=== PATIENT | male | born 1960 | race Caucasian/White ===

== ENCOUNTER 2016-09-07 13:19 | Observation (INO) | payer BC ==
[~2016-09-07] VITALS: Ht 172.7 cm; Wt 93.3 kg
[~2016-09-07 13:19] MED LIST: FLUO20CA4 PO; MELO-1 PO; NAPR500T PO; OMEP40CA2 PO; ONDA4TAB7 SL
[2016-09-07 13:24] VITALS: BP 134/65; PULSE 80; RESP 16; TEMP 97.8; O2SAT 97
--- NOTE | 2016-09-07 14:02 | PD ---
HPI Chief Complaint: Pain: Acute or Chronic Time Seen by Provider: 13:59 Travel History International Travel<30 days: No Contact w/Intl Traveler<30days: No Traveled to known affect area: No History of Present Illness HPI Patient is a 56-year-old male who presents emergency for evaluation of right foot and leg pain. Patient states the pain started 2 days ago. He reports being on his feet at work more than usual. He states his foot feels as if it throbbing and aching. He reports a lump on the side of his sorto. He does have a history of blood clots several years ago and was on Coumadin for approximately 6 months afterward. He states the blood clot at that time was from being on his feet to often and poor circulation per his primary doctor. He denies any shortness of breath, fever, chills, abdominal pain, back pain. PFSH Past Medical History Hx Anticoagulant Therapy: No Bipolar Disorder: Yes Anxiety: Yes Depression: Yes Cardiovascular Problems: Yes (CHOL) Diabetes: No Diminished Hearing: No Deep Vein Thrombosis: Yes GERD: Yes Past Surgical History Other Surgery: Yes (HERNIS REPAIR - 1985) Social History Alcohol Use: Yes (STATES NO ALCOHOL X 1 MONTH) Tobacco Use: No Substance Use: No (DENIES ANY USE) Allergies-Medications (Allergen,Severity, Reaction): Coded Allergies: No Known Allergies (Verified , 09/07/16) Reported Meds & Prescriptions Reported Meds & Active Scripts Active Ondansetron Odt 4 Mg Tab 4 Mg SL Q6HR PRN Meloxicam 15 Mg Tab 15 Mg PO DAILY Naproxen 500 Mg Tab 500 Mg PO BID 7 Days Fluoxetine (Fluoxetine HCl) 20 Mg Cap 20 Mg PO DAILY Omeprazole 40 Mg Cap 40 Mg PO DAILY Review of Systems Except as stated in HPI: all other systems reviewed are Neg Musculoskeletal: Positive: Myalgias, Edema, Pain Skin: Positive Change in Pigmentation Physical Exam Narrative GENERAL: Well-nourished, well-developed patient. SKIN: Warm and dry. HEAD: Normocephalic. EYES: No scleral icterus. No injection or drainage. NECK: Supple, trachea midline. No JVD or lymphadenopathy. CARDIOVASCULAR: Regular rate and rhythm without murmurs, gallops, or rubs. RESPIRATORY: Breath sounds equal bilaterally. No accessory muscle use. GASTROINTESTINAL: Abdomen soft, non-tender, nondistended. MUSCULOSKELETAL: No cyanosis, mild edema and erythema noted to the right foot.. There is a lump on the right tibia medially just distal to the knee. Positive pedal pulses, brisk less than 3 second capillary refill. Negative Homans sign. BACK: Nontender without obvious deformity. No CVA tenderness. Data Data Last Documented VS Vital Signs Date Time Temp Pulse Resp B/P Pulse Ox O2 Delivery O2 Flow Rate FiO2 09/07/16 13:24 97.8 80 16 134/65 97 Orders Us Leg Venous Doppler (09/07/16 ) Tibia/Fibula (Ap/Lat) (09/07/16 ) Complete Blood Count With Diff (09/07/16 15:03) Basic Metabolic Panel (Bmp) (09/07/16 15:03) Act Partial Throm Time (Ptt) (09/07/16 15:03) Prothrombin Time / Inr (Pt) (09/07/16 15:03) Rivaroxaban (Xarelto) (09/07/16 16:15) Iv Access Insert/Monitor (09/07/16 16:14) Heparin Inj (Heparin Inj) (09/07/16 16:15) Heparin Inj (Heparin Inj) (09/07/16 22:15) Heparin Inj (Heparin Inj) (09/07/16 22:15) Heparin-D5w Inj (Heparin-D5w Inj) (09/07/16 16:15) Place In Observation (09/07/16 ) Vital Signs (Adult) Q4H (09/07/16 16:38) ^ Elevate (09/07/16 16:38) Diet Heart Healthy (09/07/16 Dinner) Sodium Chloride 0.9% Flush (Ns Flush) (09/07/16 16:45) Sodium Chloride 0.9% Flush (Ns Flush) (09/07/16 21:00) Enoxaparin Inj (Lovenox Inj) (09/07/16 18:00) Warfarin (Coumadin) (09/07/16 17:00) Acetamin-Hydrocod 325-5 Mg (Moyers 5-325 (09/07/16 16:45) Acetamin-Hydrocod 325-5 Mg (Moyers 5-325 (09/07/16 16:45) Complete Blood Count With Diff (09/08/16 06:00) Basic Metabolic Panel (Bmp) (09/08/16 06:00) Prothrombin Time / Inr (Pt) (09/08/16 06:00) Prothrombin Time / Inr (Pt) (09/09/16 06:00) Prothrombin Time / Inr (Pt) (09/10/16 06:00) Prothrombin Time / Inr (Pt) (09/11/16 06:00) Prothrombin Time / Inr (Pt) (09/12/16 06:00) Fluoxetine (Prozac) (09/08/16 09:00) Pantoprazole (Protonix) (09/08/16 09:00) Case Management Consult (09/07/16 ) Admit Order (Ed Use Only) (09/07/16 16:44) Labs Laboratory Tests Test 09/07/16 15:30 White Blood Count 8.1 TH/MM3 Red Blood Count 4.33 MIL/MM3 Hemoglobin 13.7 GM/DL Hematocrit 39.7 % Mean Corpuscular Volume 91.7 FL Mean Corpuscular Hemoglobin 31.8 PG Mean Corpuscular Hemoglobin 34.6 % Concent Red Cell Distribution Width 12.1 % Platelet Count 232 TH/MM3 Mean Platelet Volume 7.3 FL Neutrophils (%) (Auto) 71.4 % Lymphocytes (%) (Auto) 19.7 % Monocytes (%) (Auto) 6.2 % Eosinophils (%) (Auto) 1.5 % Basophils (%) (Auto) 1.2 % Neutrophils # (Auto) 5.8 TH/MM3 Lymphocytes # (Auto) 1.6 TH/MM3 Monocytes # (Auto) 0.5 TH/MM3 Eosinophils # (Auto) 0.1 TH/MM3 Basophils # (Auto) 0.1 TH/MM3 CBC Comment DIFF FINAL Differential Comment Prothrombin Time 10.7 SEC Prothromb Time International 1.0 RATIO Ratio Activated Partial 25.0 SEC Thromboplast Time Sodium Level 141 MEQ/L Potassium Level 4.2 MEQ/L Chloride Level 105 MEQ/L Carbon Dioxide Level 27.9 MEQ/L Anion Gap 8 MEQ/L Blood Urea Nitrogen 11 MG/DL Creatinine 0.71 MG/DL Estimat Glomerular Filtration 115 ML/MIN Rate Random Glucose 93 MG/DL Calcium Level 8.3 MG/DL MDM Medical Decision Making Medical Screen Exam Complete: Yes Emergency Medical Condition: Yes Interpretation(s) Laboratory Tests Test 09/07/16 15:30 White Blood Count 8.1 TH/MM3 Red Blood Count 4.33 MIL/MM3 Hemoglobin 13.7 GM/DL Hematocrit 39.7 % Mean Corpuscular Volume 91.7 FL Mean Corpuscular Hemoglobin 31.8 PG Mean Corpuscular Hemoglobin 34.6 % Concent Red Cell Distribution Width 12.1 % Platelet Count 232 TH/MM3 Mean Platelet Volume 7.3 FL Neutrophils (%) (Auto) 71.4 % Lymphocytes (%) (Auto) 19.7 % Monocytes (%) (Auto) 6.2 % Eosinophils (%) (Auto) 1.5 % Basophils (%) (Auto) 1.2 % Neutrophils # (Auto) 5.8 TH/MM3 Lymphocytes # (Auto) 1.6 TH/MM3 Monocytes # (Auto) 0.5 TH/MM3 Eosinophils # (Auto) 0.1 TH/MM3 Basophils # (Auto) 0.1 TH/MM3 CBC Comment DIFF FINAL Differential Comment Prothrombin Time 10.7 SEC Prothromb Time International 1.0 RATIO Ratio Activated Partial 25.0 SEC Thromboplast Time Sodium Level 141 MEQ/L Potassium Level 4.2 MEQ/L Chloride Level 105 MEQ/L Carbon Dioxide Level 27.9 MEQ/L Anion Gap 8 MEQ/L Blood Urea Nitrogen 11 MG/DL Creatinine 0.71 MG/DL Estimat Glomerular Filtration 115 ML/MIN Rate Random Glucose 93 MG/DL Calcium Level 8.3 MG/DL Last Impressions Tibia/Fibula X-Ray 09/07/16 0000 Signed Impressions: Service Date/Time: Wednesday, September 07, 2016 14:11 - CONCLUSION: Soft tissue swelling. No acute fracture. Mane Arita MD Lower Extremity Ultrasound 09/07/16 0000 Signed Impressions: Service Date/Time: Wednesday, September 07, 2016 14:22 - CONCLUSION: Occlusive thrombus of the greater saphenous vein. No deep venous thrombosis. Mane Arita MD Vital Signs Date Time Temp Pulse Resp B/P Pulse Ox O2 Delivery O2 Flow Rate FiO2 09/07/16 13:24 97.8 80 16 134/65 97 Differential Diagnosis DVT versus dependent edema versus cellulitis versus gout versus other Narrative Course Patient is a 56-year-old male who presented to emergency department for evaluation of right lower leg pain, swelling and redness. Symptoms started 2 days ago. Patient reported a history of DVT. X-ray of the tibia-fibula was negative for acute fracture, it did show soft tissue swelling. On exam there was noted to be swelling to the lateral aspect of the tibia just distal to the knee. Ultrasound was ordered to rule out DVT due to patient's history and physical presentation. Ultrasound shows an occlusive thrombus in the greater saphenous vein. Discussed findings with patient. Discussed option of Eliquis versus Coumadin. He was educated on both medications as well as risks versus benefits. Patient opted to go on Eliquis. Labs ordered to assess kidney function prior to initiation of this medication. We do not have Eliquis savings cards in the emergency department. Discussed XARELTO with patient. He then stated that he lost his insurance when he quit his last job. He also stated that his sister has factor V deficiency. Additionally patient stated that he called the pharmacy while he was in the emergency department and was told that Xarelto would be over $200. At that time patient stated that he would like to start back on Coumadin instead. Patient will be admitted under observation to start on anticoagulation. Steve Vogt accepted admission on behalf of Dr. Ashford. Diagnosis Primary Impression: Occlusive thrombus Additional Impressions: History of DVT (deep vein thrombosis) Family history of factor V Leiden mutation Admitting Information Admitting Physician Requests: Observation Condition: Stable Che Barber Sep 07, 2016 14:02
--- NOTE | 2016-09-07 14:28 | RADHPO ---
EXAM DATE/TIME: 09/07/2016 14:11 [facility] COMPARISON: No previous studies available for comparison. INDICATIONS : Pain and swelling right lower leg, no known injury MEDICAL HISTORY : blood clots SURGICAL HISTORY : None. ENCOUNTER: Initial ACUITY: 2 days PAIN SCORE: 10/10 LOCATION: Right lower leg FINDINGS: Two view examination of the right tibia demonstrates no evidence of fracture or dislocation. Bony mi neralization is normal. The soft tissue structures are intact. Soft tissue swelling. CONCLUSION: Soft tissue swelling. No acute fracture. Mane Arita MD on September 07, 2016 at 14:26 Board Certified Radiologist. This report was verified electronically.
--- NOTE | 2016-09-07 14:49 | RADHPO ---
EXAM DATE/TIME: 09/07/2016 14:22 [facility] COMPARISON: No previous studies available for comparison. INDICATIONS : Right leg pain. MEDICAL HISTORY : Gastroesophageal reflux disease. Hypercholesterolemia. Deep venous thrombosis. Bipolar disorder. SURGICAL HISTORY : Hernia repair. ENCOUNTER: Initial ACUITY: 2 day PAIN SCORE: 8/10 LOCATION: Right leg. TECHNIQUE: Venous ultrasound of the leg was performed from the inguinal ligament to the proximal calf. Real-nelson e, color Doppler and spectral tracing, compression and augmentation techniques were used. FINDINGS: There is normal compressibility of the deep venous system from the inguinal region to the proximal ca lf. No echogenic clot is seen in the lumen of the common femoral, femoral, popliteal, and posterior tibial veins. There is a normal response of the venous system to proximal and distal augmentation an d respiration. There is thrombosis of the greater saphenous vein. CONCLUSION: Occlusive thrombus of the greater saphenous vein. No deep venous thrombosis. Mane Arita MD on September 07, 2016 at 14:46 Board Certified Radiologist. This report was verified electronically.
[2016-09-07 15:37] LABS: AUTOMATED NEUTROPHIL # 5.8 TH/MM3 (1.8-7.7); BASOPHIL # 0.1 TH/MM3 (0-0.2); BASOPHIL % 1.2 % (0.0-2.0); EOSINOPHIL # 0.1 TH/MM3 (0-0.4); EOSINOPHIL % 1.5 % (0.0-4.0); HEMATOCRIT 39.7 % (39.0-51.0); HEMO FLAGS DIFF FINAL; LYMPH % 19.7 % (9.0-44.0); LYMPHOCYTE # 1.6 TH/MM3 (1.0-4.8); MEAN CELL VOLUME 91.7 FL (80.0-100.0); MEAN CORPUSCULAR HEMOGLOBIN 31.8 PG (27.0-34.0); MEAN CORPUSCULAR HGB CONC 34.6 % (32.0-36.0); MONO % 6.2 % (0.0-8.0); NEUT % 71.4 % (16.0-70.0); PLATELET COUNT 232 TH/MM3 (150-450); RED BLOOD COUNT 4.33 MIL/MM3 (4.50-5.90); RED CELL DISTRIBUTION WIDTH 12.1 % (11.6-17.2); WHITE BLOOD COUNT 8.1 TH/MM3 (4.0-11.0)
[2016-09-07 15:47] LABS: POTASSIUM 4.2 MEQ/L (3.5-5.1)
[2016-09-07 15:50] LABS: BICARBONATE 27.9 MEQ/L (21.0-32.0)
[2016-09-07 15:52] LABS: PROTHROMBIN TIME - PATIENT 10.7 SEC (9.8-11.6)
[2016-09-07] MEDS ORDERED: APIXABAN 5 MG TABLET PO ONE (16:00)
[2016-09-07] MEDS ORDERED: HEPARIN SODIUM - IV 10,000 UNITS/10 ML VIAL IV ONE (16:15)
[2016-09-07] MEDS ORDERED: RIVAROXABAN 15 MG TAB PO ONE (16:15)
[2016-09-07] MEDS ORDERED: HEPARIN-D5W INJ 250 ML IV SCH (16:15)
[2016-09-07] MEDS ORDERED: ACETAMINOPHEN/HYDROcodone 325 MG/5 MG TAB PO PRN (16:45)
[2016-09-07] MEDS ORDERED: SODIUM CHLORIDE 0.9% FLUSH 5 ML FLUSH IVF PRN (16:45)
[2016-09-07] MEDS ORDERED: WARFARIN SOD 5 MG TAB PO SCH (17:00)
[2016-09-07 17:13] VITALS: BP 147/89; PULSE 71; RESP 16; O2SAT 98
[2016-09-07] MEDS: ENOXAPARIN SODIUM 100 MG/ML SYRINGE SQ SCH (17:25)
[2016-09-07 17:50] VITALS: BP 133/87; PULSE 68; RESP 20; TEMP 97.2; O2SAT 99
[2016-09-07 19:54] VITALS: PULSE 80
[2016-09-07 20:28] VITALS: BP 135/83; PULSE 74; RESP 20; TEMP 98; O2SAT 97
[2016-09-07] MEDS: SODIUM CHLORIDE 0.9% FLUSH 5 ML FLUSH IVF SCH (21:33)
[2016-09-07] MEDS: ACETAMINOPHEN/HYDROcodone 325 MG/5 MG TAB PO PRN (21:34)
[2016-09-07] MEDS ORDERED: HEPARIN SODIUM - IV 10,000 UNITS/10 ML VIAL IV PRN ×2 (22:15)
[2016-09-08 00:28] VITALS: BP 137/75; PULSE 66; RESP 16; TEMP 97; O2SAT 93
[2016-09-08] MEDS: ACETAMINOPHEN/HYDROcodone 325 MG/5 MG TAB PO PRN ×2 (01:48→06:13)
[2016-09-08 04:29] VITALS: BP 142/89; PULSE 62; RESP 14; TEMP 96.9; O2SAT 93
[2016-09-08] MEDS: ENOXAPARIN SODIUM 100 MG/ML SYRINGE SQ SCH (06:12)
[2016-09-08 06:24] LABS: AUTOMATED NEUTROPHIL # 3.3 TH/MM3 (1.8-7.7); BASOPHIL # 0.1 TH/MM3 (0-0.2); BASOPHIL % 0.9 % (0.0-2.0); EOSINOPHIL # 0.3 TH/MM3 (0-0.4); EOSINOPHIL % 3.9 % (0.0-4.0); HEMATOCRIT 39.5 % (39.0-51.0); HEMO FLAGS DIFF FINAL; LYMPH % 35.8 % (9.0-44.0); LYMPHOCYTE # 2.4 TH/MM3 (1.0-4.8); MEAN CELL VOLUME 92.6 FL (80.0-100.0); MEAN CORPUSCULAR HEMOGLOBIN 31.5 PG (27.0-34.0); MONO % 7.7 % (0.0-8.0); NEUT % 51.7 % (16.0-70.0); PLATELET COUNT 218 TH/MM3 (150-450); RED BLOOD COUNT 4.26 MIL/MM3 (4.50-5.90); RED CELL DISTRIBUTION WIDTH 11.9 % (11.6-17.2); WHITE BLOOD COUNT 6.6 TH/MM3 (4.0-11.0)
[2016-09-08 06:32] LABS: POTASSIUM 3.9 MEQ/L (3.5-5.1)
[2016-09-08 06:38] LABS: BICARBONATE 32.7 MEQ/L (21.0-32.0)
[2016-09-08 06:45] LABS: PROTHROMBIN TIME - PATIENT 10.9 SEC (9.8-11.6)
[2016-09-08 08:00] VITALS: BP 136/83; PULSE 62; RESP 18; TEMP 97.3; O2SAT 97
[2016-09-08] MEDS ORDERED: ONDANSETRON HCL 4 MG/2 ML VIAL IV PRN (08:15)
[2016-09-08] MEDS ORDERED: DOCUSATE SODIUM 100 MG CAP PO PRN (08:15)
[2016-09-08] MEDS ORDERED: MAGNESIUM HYDROXIDE SUSP 30 ML CUP PO PRN (08:15)
[2016-09-08] MEDS: SODIUM CHLORIDE 0.9% FLUSH 5 ML FLUSH IVF SCH (08:23)
[2016-09-08] MEDS ORDERED: FLUoxetine HCL 20 MG CAP PO SCH (09:00)
[2016-09-08] MEDS ORDERED: PANTOPRAZOLE SOD 40 MG DELAYED RELEASE TAB PO SCH (09:00)
--- NOTE | 2016-09-08 09:35 | HHI.HP ---
[facility] Non-Staff Admission Diagnosis occlusive thrombus Diagnoses: (1) Superficial vein thrombosis Diagnosis: Principal (2) Hypertension Diagnosis: Secondary (3) Hyperlipidemia Diagnosis: Secondary (4) Gastroesophageal reflux Diagnosis: Secondary (5) History of DVT (deep vein thrombosis) Diagnosis: Secondary Chief Complaint: Right leg pain Travel History International Travel<30 Days: No Contact w/Intl Traveler <30 Da: No Traveled to Known Affected Are: No History of Present Illness 56-year-old male with known history of hypertension, hyperlipidemia, gastroesophageal reflux, history of right lower extremity DVT who presented to hospital because of right lower extremity swelling, pain. Patient states that he has changed jobs and is not ambulating as much as he did before. 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 He started developing swelling in his right lower extremity 3 days ago and progressively got worse so he came the hospital for evaluation. Patient had workup done emergency department found to have superficial vein thrombosis of the greater saphenous vein. Because of that reason is recommended by the ER nurse practitioner that the patient be admitted for anticoagulation. He does indicate that his family does have strong history of blood clots and possible factor V deficiency. I notified him to follow-up with his primary medical doctor for outpatient workup to evaluate if he is genetically predisposed to clot formation. Review of Systems Constitutional: DENIES: Diaphoretic episodes, Fatigue, Fever, Weight gain, Weight loss, Chills, Dizziness, Change in appetite, Night Sweats Eyes: DENIES: Blurred vision, Diplopia, Eye inflammation, Eye pain, Vision loss , Photosensitivity, Double Vision Ears, nose, mouth, throat: DENIES: Vertigo, Nasal discharge, Throat pain, Ear Pain, Running Nose, Sinus Pain Respiratory: DENIES: Apneas, Cough, Snoring, Wheezing, Hemoptysis, Sputum production, Shortness of breath Cardiovascular: COMPLAINS OF: Lower Extremity Edema (right), DENIES: Chest pain, Palpitations, Syncope, Dyspnea on Exertion, Orthopnea Gastrointestinal: DENIES: Abdominal pain, Black stools, Bloody stools, Constipation, Diarrhea, Nausea, Vomiting, Difficulty Swallowing, Anorexia Neurologic: DENIES: Abnormal gait, Headache, Localized weakness, Paresthesias, Speech Problems, Tremor, Poor Balance Past Family Social History Past Medical History Hypertension Hyperlipidemia Anxiety/depression Gastroesophageal reflux Bipolar disorder History DVT of the right lower extremity Past Surgical History Abdominal hernia repair Urethral dilatation Reported Medications Reported Meds & Active Scripts Active Ondansetron Odt 4 Mg Tab 4 Mg SL Q6HR PRN Meloxicam 15 Mg Tab 15 Mg PO DAILY Naproxen 500 Mg Tab 500 Mg PO BID 7 Days Fluoxetine (Fluoxetine HCl) 20 Mg Cap 20 Mg PO DAILY Omeprazole 40 Mg Cap 40 Mg PO DAILY Allergies: Coded Allergies: No Known Allergies (Verified , 09/07/16) Family History Reviewed is significant for DVT with mother. Social History Patient states that he did smoke temporarily when he was a teenager. Denies any alcohol or illicit drug use Physical Exam Vital Signs Vital Signs Date Time Temp Pulse Resp B/P Pulse Ox O2 Delivery O2 Flow Rate FiO2 09/08/16 08:00 97.3 62 18 136/83 97 09/08/16 04:29 96.9 62 14 142/89 93 09/08/16 00:28 97.0 66 16 137/75 93 09/07/16 20:28 98.0 74 20 135/83 97 09/07/16 19:54 80 09/07/16 17:50 97.2 68 20 133/87 99 09/07/16 17:13 71 16 147/89 98 Room Air 09/07/16 13:24 97.8 80 16 134/65 97 Physical Exam GENERAL: Well-developed, well-nourished, in no acute distress. alert and orientated HEENT: Head is normocephalic without any lesions or masses noted. Facial features are symmetric. Eyes: Pupils equal round reactive to light. Extraocular muscles are intact. Conjunctivae were clear. Oropharyngeal: Pharynx without any erythema edema. Tongue is midline without deviation. Buccal mucosa is moist without any masses or lesions NECK: Supple without any masses. Trachea midline no deviation. No JVD, no bruits are appreciated CARDIAC: Regular rhythm, regular rate. S1/S2 are heard. No murmurs gallops or rubs. LUNGS: Clear to auscultation bilaterally. No wheeze, rhonchi or rales. No use of accessory muscles on inspiration or expiration. ABDOMEN: Soft, nontender. Nondistended. Bowel sounds heard in all 4 quadrants. No organomegaly or masses. Negative rebound, negative guarding EXTREMITIES: No edema, pulses are equal bilaterally. No cyanosis or clubbing NEUROLOGY: Mood and affect appear appropriate. Cranial nerves II through XII grossly intact. Muscle strength 5/5 in upper and lower extremities bilaterally. Deep tendon reflexes are 2+ in upper and lower extremities bilaterally. RIGHT LOWER EXTREMITY: Patient does have some mild nonpitting edema noted in the right ankle. There is a palpable thrombus noted in the right medial calf. Laboratory Laboratory Tests Test 09/07/16 09/08/16 15:30 06:08 White Blood Count 8.1 6.6 Red Blood Count 4.33 4.26 Hemoglobin 13.7 13.4 Hematocrit 39.7 39.5 Mean Corpuscular Volume 91.7 92.6 Mean Corpuscular Hemoglobin 31.8 31.5 Mean Corpuscular Hemoglobin 34.6 34.0 Concent Red Cell Distribution Width 12.1 11.9 Platelet Count 232 218 Mean Platelet Volume 7.3 7.2 Neutrophils (%) (Auto) 71.4 51.7 Lymphocytes (%) (Auto) 19.7 35.8 Monocytes (%) (Auto) 6.2 7.7 Eosinophils (%) (Auto) 1.5 3.9 Basophils (%) (Auto) 1.2 0.9 Neutrophils # (Auto) 5.8 3.3 Lymphocytes # (Auto) 1.6 2.4 Monocytes # (Auto) 0.5 0.5 Eosinophils # (Auto) 0.1 0.3 Basophils # (Auto) 0.1 0.1 CBC Comment DIFF FINAL DIFF FINAL Differential Comment Prothrombin Time 10.7 10.9 Prothromb Time International 1.0 1.0 Ratio Activated Partial 25.0 Thromboplast Time Sodium Level 141 142 Potassium Level 4.2 3.9 Chloride Level 105 102 Carbon Dioxide Level 27.9 32.7 Anion Gap 8 7 Blood Urea Nitrogen 11 12 Creatinine 0.71 0.78 Estimat Glomerular Filtration 115 103 Rate Random Glucose 93 95 Calcium Level 8.3 8.3 Result Diagram: 09/08/16 0608 09/08/16 0608 Imaging Last Impressions Tibia/Fibula X-Ray 09/07/16 0000 Signed Impressions: Service Date/Time: Wednesday, September 07, 2016 14:11 - CONCLUSION: Soft tissue swelling. No acute fracture. Mane Arita MD Lower Extremity Ultrasound 09/07/16 0000 Signed Impressions: Service Date/Time: Wednesday, September 07, 2016 14:22 - CONCLUSION: Occlusive thrombus of the greater saphenous vein. No deep venous thrombosis. Mane Arita MD Assessment and Plan Assessment and Plan Superficial vein thrombosis Ultrasound does indicate occlusive thrombus in the greater saphenous vein, discussed with radiology, who indicates that clot is throughout entire saphenous vein. Research material indicates that patient should require anticoagulation for 45 days, --Discussed with patient, patient is concerned about cost of Xarelto, will be able to provide 30 day supply free of charge. By that time patient will likely be able to qualify for patient care assistance and should be able to get remainder Rx. Bipolar disorder Continue home medications Gastrosoft reflux Continue proton pump inhibitor DVT prevention Patient was given a dose of Lovenox Written by Leobardo Vogt PA-C, acting as scribe for Dr. Roy on 09/08/16 at 1050. The documentation accurately reflects the work and decisions performed face-to- face by Dr. Roy on 09/08/16 at 1050. Discharge disposition Discharge home in stable condition Activity: Ad theron. Diet: Healthy heart diet Medications per medication reconciliation sheet Follow-up primary medical doctor in one week Problem Qualifiers (1) Hypertension: Qualified Code: I15.9 - Secondary hypertension (2) Hyperlipidemia: Qualified Code: E78.5 - Hyperlipidemia, unspecified hyperlipidemia type (3) Gastroesophageal reflux: Qualified Code: K21.9 - Gastroesophageal reflux disease, esophagitis presence not specified Leobardo Vogt Sep 08, 2016 09:35
[2016-09-08] MEDS ORDERED: ASPI325T33 PO (09:36)
--- NOTE | 2016-09-08 09:36 | HHI.DCPOC ---
Discharge Care Plan Diagnosis: (1) Superficial vein thrombosis Goals to Promote Your Health * To prevent worsening of your condition and complications * To maintain your health at the optimal level Directions to Meet Your Goals Take your medications as prescribed Follow your dietary instruction Follow activity as directed Keep your appointments as scheduled Take your immunizations and boosters as scheduled If your symptoms worsen call your PCP, if no PCP go to Urgent Care Center or Emergency Room Smoking is Dangerous to Your Health. Avoid second hand smoke Call the 24-hour hour crisis hotline for domestic abuse at Leobardo Vogt Sep 08, 2016 09:36
[2016-09-08] MEDS ORDERED: PNEUMOCOCCAL POLYVALENT INJ 25 MCG/0.5 ML SYR IM ONE (10:00)
[2016-09-08] MEDS ORDERED: XARE20TA PO (10:59)
[2016-09-08] MEDS ORDERED: XARE15TA PO (10:59)
[2016-09-08] MEDS ORDERED: RIVAROXABAN 15 MG TAB PO SCH (11:00)
[2016-09-08 12:00] VITALS: BP 141/85; PULSE 66; RESP 17; TEMP 97.9; O2SAT 98
[2016-09-10] MEDS ORDERED: HYDR-3288 PO (16:44)
[2016-10-14] MEDS ORDERED: FLUO10CA5 PO (16:00)
[2016-10-17] MEDS ORDERED: COUM5TAB PO (08:06)
[2016-10-21] MEDS ORDERED: FLUO40CA PO (18:13)
[2016-12-02] MEDS ORDERED: FLUO40CA PO (11:28)
[2016-12-02] MEDS ORDERED: COUM5TAB PO (11:29)
== END 2016-09-08 14:00 | disposition home or self-care (01) ==
LOC: PHEFT 13:19 → PHEDA 16:46 → PH3A 17:43
PROVIDERS: ADMIT Family Medicine; ATTEND Family Medicine
DX: I82.811 Embolism and thrombosis of superficial veins of right lower extremity (principal); I10 Essential (primary) hypertension; E78.5 Hyperlipidemia, unspecified; K21.9 Gastro-esophageal reflux disease without esophagitis; F31.9 Bipolar disorder, unspecified; Z23 Encounter for immunization; Z79.01 Long term (current) use of anticoagulants; Z87.891 Personal history of nicotine dependence; Z86.718 Personal history of other venous thrombosis and embolism; Z83.2 Family history of diseases of the blood and blood-forming organs and certain disorders involving the immune mechanism
CPT/HCPCS: 73590; 80048; 85025; 85610; 85730; 90732; 93971; 99285; G0378; J1650; J2405; J1644

== ENCOUNTER 2017-02-27 13:47 | Emergency (ER) | payer SELFPAY ==
[~2017-02-27] VITALS: Ht 172.7 cm; Wt 85.0 kg
[~2017-02-27 13:47] MED LIST changes: +COUM5TAB PO; -FLUO20CA4 PO; +FLUO40CA PO; -MELO-1 PO; -NAPR500T PO
[2017-02-27 13:48] VITALS: BP 129/76; PULSE 76; RESP 18; TEMP 98.2; O2SAT 96
--- NOTE | 2017-02-27 13:58 | PD ---
Physical Exam Time Seen by Provider: 13:56 Narrative 57 y/o male with lower back pain. he says that he rolled out of bed while sleeping 1.5 weeks ago. Vital signs reviewed. Seen at triage desk. Awaiting bed placement. Data Data Last Documented VS Vital Signs Date Time Temp Pulse Resp B/P Pulse Ox O2 Delivery O2 Flow Rate FiO2 02/27/17 13:48 98.2 76 18 129/76 96 Room Air [facility] Medical Record Reviewed: Yes Supervised Visit with CONNER: No Guicho Graham Feb 27, 2017 13:58
--- NOTE | 2017-02-27 14:19 | PD ---
HPI Chief Complaint: Back/ Neck Pain or Injury Time Seen by Provider: 14:14 Travel History International Travel<30 days: No Contact w/Intl Traveler<30days: No Traveled to known affect area: No History of Present Illness HPI 57-year-old male presents to emergency Department with complaint of tailbone pain after rolling out of bed and landing on his buttocks about a week and a half ago. Denies paresthesias, loss of sensation, decreased range of motion, decreased strength to bilateral lower extremities. Denies encopresis, incontinence, saddle anesthesias. Denies fever, vomiting. Denies IV drug use, cancer. Does take Coumadin. Denies hitting his head or loss of consciousness. Denies hematuria, hematochezia. Denies difficulty stooling or urinating. Has been taking Tylenol and using a heating pad for symptom management. Pain is aggravated with sitting, bending over, defecating. No known allergies. Has no other medical complaints. No other modifying factors or associated signs and symptoms. PFSH Past Medical History Hx Anticoagulant Therapy: Yes Arthritis: Yes (knees, joints) Bipolar Disorder: Yes Anxiety: Yes Depression: Yes Heart Rhythm Problems: No Cardiovascular Problems: Yes High Cholesterol: Yes Congestive Heart Failure: No Diabetes: No Diminished Hearing: No Deep Vein Thrombosis: Yes Endocrine: No GERD: Yes Genitourinary: No Musculoskeletal: Yes Neurologic: Yes Psychiatric: Yes Respiratory: Yes Migraines: Yes Past Surgical History Genitourinary Surgery: Yes (urinary tract dilation ) Other Surgery: Yes (HERNIS REPAIR - 1985) Social History Alcohol Use: Yes (STATES NO ALCOHOL X 1 MONTH) Tobacco Use: No Substance Use: No (DENIES ANY USE) Allergies-Medications (Allergen,Severity, Reaction): Coded Allergies: No Known Allergies (Verified , 02/27/17) Reported Meds & Prescriptions Reported Meds & Active Scripts Active Coumadin (Warfarin) 5 Mg Tab 5 Mg PO DAILY Fluoxetine (Fluoxetine HCl) 40 Mg Cap 40 Cap PO DAILY Ondansetron Odt 4 Mg Tab 4 Mg SL Q6HR PRN Omeprazole 40 Mg Cap 40 Mg PO DAILY Review of Systems Except as stated in HPI: all other systems reviewed are Neg Physical Exam Narrative GENERAL: Well-nourished, well-developed male patient, in no acute distress; afebrile, nontoxic-appearing SKIN: Warm and dry. Coccyx area without erythema, edema, ecchymosis. HEAD: Atraumatic. Normocephalic. EYES: Pupils equal and round. No scleral icterus. No injection or drainage. ENT: Mucosa pink and moist. Airway patent. NECK: Trachea midline. CARDIOVASCULAR: Regular rate. RESPIRATORY: No accessory muscle use. GASTROINTESTINAL: Round. MUSCULOSKELETAL: Bilateral lower extremities supple and non-tense with 2+ pedal pulses and sensory intact; with full range of motion and 5/5 strength. 2 + DTRs bilaterally. Active dorsiflexion and extension of bilateral feet. Ambulatory in room with normal gait. Sitting up in bed at 90. No obvious deformities. No clubbing. No cyanosis. No edema. BACK: Midline point tenderness on palpation of the coccyx area. No midline point tenderness on palpation of the lumbar or thoracic spine. No obvious deformities. NEUROLOGICAL: Awake and alert. Oriented 3. No obvious cranial nerve deficits. Motor grossly within normal limits. Normal speech. Moves all extremities. 5/5 strength to all extremities. Sensory intact. PSYCHIATRIC: Appropriate mood and affect; insight and judgment normal. Data Data Last Documented VS Vital Signs Date Time Temp Pulse Resp B/P Pulse Ox O2 Delivery O2 Flow Rate FiO2 02/27/17 13:48 98.2 76 18 129/76 96 Room Air Orders Sacrum And Coccyx (02/27/17 ) Acetaminophen (Tylenol) (02/27/17 15:30) MDM Medical Decision Making Medical Screen Exam Complete: Yes Emergency Medical Condition: Yes Medical Record Reviewed: Yes Differential Diagnosis Coccyx fracture, sacral fracture, contusion of coccyx Narrative Course 57-year-old male with injury of the coccyx. Patient on Coumadin. He denies hitting his head or loss of consciousness when he fell and landed on his buttocks that a week and a half ago. Denies encopresis, incontinence, saddle anesthesias. Patient has midline tenderness on palpation of the coccyx area. Coccyx and sacrum x-ray ordered. 1528: Coccyx and sacrum x-ray with no acute findings. Tylenol administered in the ER. Instructed patient to continue Tylenol as directed and as needed for pain. Instructed patient to follow up with primary care provider. Patient verbalizes understanding and agreement with treatment plan. Patient is medically cleared and stable for discharge. Discussed reasons to return to the emergency department. Patient agrees with treatment plan. The patients vital signs are stable and the patient is stable for outpatient follow-up and treatment. Patient discharged home, stable and in no acute distress. Diagnosis Primary Impression: Injury of coccyx Qualified Code: S39.92XA - Injury of coccyx, initial encounter Referrals: Primary Care Physician Patient Instructions: Coccyx Injury (ED), General Instructions Departure Forms: Tests/Procedures, Work Release Enter return to work date: Mar 01, 2017 Additional Instructions: Tylenol or ibuprofen as directed and as needed for pain Heating pad and/or ice to affected area to reduce pain Avoid aggravating activities; increase activity as tolerated Follow-up with primary care provider Return to emergency department immediately with worsening of symptoms Med/Other Pt SpecificInfo: No Meds Exist/No RX given Disposition: 01 DISCHARGE HOME Condition: Stable Chinyere Hilliard Feb 27, 2017 14:19
--- NOTE | 2017-02-27 15:15 | RADRPT ---
EXAM DATE/TIME: 02/27/2017 14:25 [facility] COMPARISON: No previous studies available for comparison. INDICATIONS : Fell out of bed 10 days ago. MEDICAL HISTORY : None. SURGICAL HISTORY : None. ENCOUNTER: Initial ACUITY: 1 week PAIN SCORE: 10/10 LOCATION: sacrum/coccyx FINDINGS: There is no acute fracture or dislocation of the sacrum or coccyx. CONCLUSION: No acute fracture or dislocation of the sacrum or coccyx. Alex Anna MD on February 27, 2017 at 15:13 Board Certified Radiologist. This report was verified electronically.
[2017-02-27] MEDS ORDERED: ACETAMINOPHEN 325 MG TAB PO ONE (15:30)
[2017-02-28] MEDS ORDERED: IBUP400T20 PO (08:26)
== END 2017-02-27 16:08 | disposition home or self-care (01) ==
LOC: NEPK 13:47
DX: S39.92XA Unspecified injury of lower back, initial encounter (principal); M13.88 Other specified arthritis, other site; F31.9 Bipolar disorder, unspecified; E78.00 Pure hypercholesterolemia, unspecified; K21.9 Gastro-esophageal reflux disease without esophagitis; F41.9 Anxiety disorder, unspecified; W18.30XA Fall on same level, unspecified, initial encounter; Z79.01 Long term (current) use of anticoagulants; Z86.718 Personal history of other venous thrombosis and embolism
CPT/HCPCS: 72220; 99283

== ENCOUNTER 2017-03-28 16:46 | Emergency (ER) | payer SELFPAY ==
[~2017-03-28] VITALS: Ht 177.8 cm; Wt 88.0 kg
[~2017-03-28 16:46] MED LIST changes: +IBUP400T20 PO
[2017-03-28 16:50] VITALS: BP 147/72; PULSE 68; RESP 15; TEMP 97.9; O2SAT 98
[2017-03-28] MEDS ORDERED: ROBA500T PO (20:28)
[2017-03-28] MEDS ORDERED: ULTR50TA5 PO (20:28)
[2017-03-28] MEDS ORDERED: CYCLOBENZAPRINE HCL 10 MG TAB PO ONE (20:30)
[2017-03-28] MEDS ORDERED: traMADol HCL 50 MG TAB PO ONE (20:30)
--- NOTE | 2017-03-28 20:46 | PD ---
HPI Chief Complaint: Back/ Neck Pain or Injury Time Seen by Provider: 20:15 Travel History International Travel<30 days: No Contact w/Intl Traveler<30days: No Traveled to known affect area: No History of Present Illness HPI 57-year-old white male with complaints of lower back pain. The patient has had lower back pain after having a fall last month. He states that that pain did seem to improve. Now in the last week or so he's had increasing pain now in his lower back more so on the right SI area as opposed to the coccyx and sacrum area. He has not seen his primary care doctor regarding this yet. States the pain is worse when he bends and moves or takes a deep breath. He denies any acute bowel or bladder changes. No focal numbness or tingling. Pain is mild to moderate. Sharp and cramping in nature. He denies any abdominal pain PFSH Past Medical History Hx Anticoagulant Therapy: Yes Arthritis: Yes (knees, joints) Bipolar Disorder: Yes Anxiety: Yes Depression: Yes Heart Rhythm Problems: No Cardiovascular Problems: Yes High Cholesterol: Yes Congestive Heart Failure: No Diabetes: No Diminished Hearing: No Deep Vein Thrombosis: Yes Endocrine: No Gastrointestinal Disorders: Yes GERD: Yes Genitourinary: No Headaches: Yes Hypertension: Yes (occ) Musculoskeletal: Yes Neurologic: Yes Psychiatric: Yes Respiratory: Yes Migraines: Yes Past Surgical History Genitourinary Surgery: Yes (urinary tract dilation ) Other Surgery: Yes (HERNIS REPAIR - 1985) Social History Alcohol Use: Yes (STATES NO ALCOHOL X 1 MONTH) Tobacco Use: No Substance Use: No (DENIES ANY USE) Allergies-Medications (Allergen,Severity, Reaction): Coded Allergies: No Known Allergies (Verified , 03/28/17) Reported Meds & Prescriptions Reported Meds & Active Scripts Active Ultram (Tramadol HCl) 50 Mg Tab 50 Mg PO Q6H PRN Robaxin (Methocarbamol) 500 Mg Tab 500 Mg PO QID Coumadin (Warfarin) 5 Mg Tab 5 Mg PO DAILY Ibuprofen 400 Mg Tab 400 Mg PO Q6H PRN Fluoxetine (Fluoxetine HCl) 40 Mg Cap 40 Cap PO DAILY Omeprazole 40 Mg Cap 40 Mg PO DAILY Review of Systems Except as stated in HPI: all other systems reviewed are Neg Physical Exam Narrative GENERAL: This is a well-nourished, well-developed patient, in no apparent distress. SKIN: No rashes, ecchymoses or lesions. Warm and dry. HEAD: Atraumatic. Normocephalic. EYES: PERRL, EOMI, no discharge or injection. No scleral icterus. EARS: Clear NOSE: Nasal turbinates appear normal. THROAT: Mucosa pink and moist. Airway patent. NECK: Trachea midline. supple, moves head freely. LUNGS: Clear to auscultation. CV: Regular in rhythm. ABDOMEN: Soft nontender. No guarding rebound EXT: No clubbing cyanosis or edema. Back: Patient is able to bend forward to 80. He is able to heel and toe stand. There is no central bony tenderness to palpation of dorsal lumbar spine. Patient has bilateral paralumbar tenderness with point tenderness over his right SI region. No saddle anesthesia. No obvious spasm. Data Data Last Documented VS Vital Signs Date Time Temp Pulse Resp B/P (MAP) Pulse Ox O2 Delivery O2 Flow Rate FiO2 03/28/17 19:59 68 15 03/28/17 16:50 97.9 147/72 (97) 98 Orders Orders Cyclobenzaprine (Flexeril) (03/28/17 20:30) Tramadol (Ultram) (03/28/17 20:30) MDM Medical Decision Making Medical Screen Exam Complete: Yes Emergency Medical Condition: Yes Medical Record Reviewed: Yes Differential Diagnosis MDM: High Differential diagnoses: AAA,Fracture, sprain, strain, HNP, nerve or vascular injury, epidural abscess, pilonidal cyst, pyelonephritis, UTI, nephrolithiasis, ureterolithiasis Narrative Course Patient is given Flexeril 10 and Ultram 50 mg by mouth. Patient is on Coumadin for recurrent DVT. NSAIDs are contraindicated. Diagnosis Primary Impression: Acute exacerbation of chronic low back pain Patient Instructions: General Instructions Additional Instructions: Rest. Ice for the next 3 days followed by heat . Robaxin and Ultram. Follow-up with a primary care doctor in one week. Return to the ER for emergencies. Med/Other Pt SpecificInfo: Prescription(s) given Scripts Tramadol (Ultram) 50 Mg Tab 50 MG PO Q6H Y for PAIN, #20 TAB 0 Refills Prov: Baljit Ortiz MD 03/28/17 Methocarbamol (Robaxin) 500 Mg Tab 500 MG PO QID for Muscle Spasm, #28 TAB 0 Refills Prov: Baljit Ortiz MD 03/28/17 Disposition: 01 DISCHARGE HOME Condition: Stable Guillermo Davis Mar 28, 2017 20:46
== END 2017-03-28 21:23 | disposition home or self-care (01) ==
LOC: NEPD 16:46
DX: M54.5 Low back pain (principal); I10 Essential (primary) hypertension; K21.9 Gastro-esophageal reflux disease without esophagitis; F31.9 Bipolar disorder, unspecified; F41.9 Anxiety disorder, unspecified; E78.00 Pure hypercholesterolemia, unspecified; M13.869 Other specified arthritis, unspecified knee; Z86.718 Personal history of other venous thrombosis and embolism; Z79.01 Long term (current) use of anticoagulants
CPT/HCPCS: 99284

== ENCOUNTER 2017-05-17 02:39 | Emergency (ER) | payer SELFPAY ==
[~2017-05-17] VITALS: Ht 180.3 cm; Wt 90.0 kg
[~2017-05-17 02:39] MED LIST changes: -ONDA4TAB7 SL; +ROBA500T PO; +ULTR50TA5 PO
[2017-05-17 03:04] VITALS: BP 120/88; PULSE 68; RESP 18; TEMP 98.1; O2SAT 98
--- NOTE | 2017-05-17 05:56 | PD ---
HPI Chief Complaint: Alcohol/Drug Intoxication Time Seen by Provider: 05:51 Travel History International Travel<30 days: No Contact w/Intl Traveler<30days: No Traveled to known affect area: No History of Present Illness HPI 57 years old male was Louise act and brought in for evaluation. Patient was found intoxicated. Patient denies any headache. Patient denies any chest pain or shortness of breath. Patient denies abdominal pain. Patient denies any focal weakness or numbness of extremity. Patient denies any injury. PFSH Past Medical History Hx Anticoagulant Therapy: Yes Arthritis: Yes (knees, joints) Bipolar Disorder: Yes Anxiety: Yes Depression: Yes Heart Rhythm Problems: No Cardiovascular Problems: Yes High Cholesterol: Yes Congestive Heart Failure: No Diabetes: No Diminished Hearing: No Deep Vein Thrombosis: Yes Endocrine: No Gastrointestinal Disorders: Yes GERD: Yes Genitourinary: No Headaches: Yes Hypertension: Yes (occ) Musculoskeletal: Yes Neurologic: Yes Psychiatric: Yes Respiratory: Yes Migraines: Yes Tetanus Vaccination: Unknown Past Surgical History Genitourinary Surgery: Yes (urinary tract dilation ) Other Surgery: Yes (HERNIS REPAIR - 1985) Social History Alcohol Use: Yes (ETOH tonight) Tobacco Use: No Substance Use: No (DENIES ANY USE) Allergies-Medications (Allergen,Severity, Reaction): Coded Allergies: No Known Allergies (Verified , 03/28/17) Reported Meds & Prescriptions Reported Meds & Active Scripts Active Ultram (Tramadol HCl) 50 Mg Tab 50 Mg PO Q6H PRN Robaxin (Methocarbamol) 500 Mg Tab 500 Mg PO QID Coumadin (Warfarin) 5 Mg Tab 5 Mg PO DAILY Ibuprofen 400 Mg Tab 400 Mg PO Q6H PRN Fluoxetine (Fluoxetine HCl) 40 Mg Cap 40 Cap PO DAILY Omeprazole 40 Mg Cap 40 Mg PO DAILY Review of Systems General / Constitutional: No: Fever Eyes: No: Visual changes HENT: No: Headaches Cardiovascular: No: Chest Pain or Discomfort Respiratory: No: Shortness of Breath Gastrointestinal: No: Abdominal Pain Genitourinary: No: Dysuria Musculoskeletal: No: Pain Skin: No Rash Neurologic: No: Weakness Psychiatric: No: Depression Endocrine: No: Polydipsia Hematologic/Lymphatic: No: Easy Bruising Physical Exam Narrative GENERAL: Well-nourished, well-developed patient. SKIN: Focused skin assessment warm/dry. HEAD: Normocephalic. EYES: No scleral icterus. No injection or drainage. NECK: Supple, trachea midline. No JVD or lymphadenopathy. CARDIOVASCULAR: Regular rate and rhythm without murmurs, gallops, or rubs. RESPIRATORY: Breath sounds equal bilaterally. No accessory muscle use. GASTROINTESTINAL: Abdomen soft, non-tender, nondistended. MUSCULOSKELETAL: No cyanosis, or edema. BACK: Nontender without obvious deformity. No CVA tenderness. Data Data Last Documented VS Vital Signs Date Time Temp Pulse Resp B/P (MAP) Pulse Ox O2 Delivery O2 Flow Rate FiO2 05/17/17 03:04 98.1 68 18 120/88 (99) 98 MDM Medical Decision Making Medical Screen Exam Complete: Yes Emergency Medical Condition: Yes Differential Diagnosis Differential diagnosis including alcohol intoxication. Narrative Course 57 years old male was Louise act and brought in for evaluation. Patient is intoxicated. Patient will be observed until patient's awake alert steady on his feet and safely to be discharged. Diagnosis Primary Impression: Alcohol intoxication Qualified Codes: F10.920 - Alcohol use, unspecified with intoxication, uncomplicated Patient Instructions: General Instructions Additional Instructions: Advised [facility]. Med/Other Pt SpecificInfo: No Change to Meds Disposition: 01 DISCHARGE HOME Condition: Stable Lonny Shirley MD May 17, 2017 05:56
== END 2017-05-17 07:15 | disposition home or self-care (01) ==
LOC: NEDAMB 02:39
DX: F10.920 Alcohol use, unspecified with intoxication, uncomplicated (principal); F31.9 Bipolar disorder, unspecified; F41.9 Anxiety disorder, unspecified; E78.5 Hyperlipidemia, unspecified; Z86.718 Personal history of other venous thrombosis and embolism; Z79.01 Long term (current) use of anticoagulants; K21.9 Gastro-esophageal reflux disease without esophagitis; G43.909 Migraine, unspecified, not intractable, without status migrainosus; I10 Essential (primary) hypertension; Z79.899 Other long term (current) drug therapy
CPT/HCPCS: 99283

== ENCOUNTER 2017-06-12 00:54 | Emergency (ER) | payer SELFPAY ==
[~2017-06-12 00:54] MED LIST changes: +IBUP1TAB5 PO; -IBUP400T20 PO; +TRAM50 PO; -ULTR50TA5 PO
[2017-06-12 01:15] VITALS: BP 130/68; PULSE 72; RESP 18; TEMP 98.2; O2SAT 97
--- NOTE | 2017-06-12 01:27 | PD ---
HPI Chief Complaint: Alcohol/Drug Intoxication Time Seen by Provider: 01:07 Travel History International Travel<30 days: No Contact w/Intl Traveler<30days: No Traveled to known affect area: No History of Present Illness HPI Patient comes emergency Department via EMS after being found sleeping in the grass of his apartment complex. EMS reports there were initially going to just help him get inside his house as they have previously however patient was requesting detox and wanted to come to the emergency Department. Patient states he no longer wants to stay for detox and wants to go home. Patient denies any medical concerns at this time. Denies any chest pain, shortness of breath, nausea, vomiting, abdominal pain, or numbness tingling anywhere. Patient reports he only had a "couple" of drinks tonight. PFSH Past Medical History Hx Anticoagulant Therapy: Yes Arthritis: Yes (knees, joints) Bipolar Disorder: Yes Anxiety: Yes Depression: Yes Heart Rhythm Problems: No Cardiovascular Problems: Yes High Cholesterol: Yes Congestive Heart Failure: No Diabetes: No Diminished Hearing: No Deep Vein Thrombosis: Yes Endocrine: No Gastrointestinal Disorders: Yes GERD: Yes Genitourinary: No Headaches: Yes Hypertension: Yes (occ) Musculoskeletal: Yes Neurologic: Yes Psychiatric: Yes Respiratory: Yes Migraines: Yes Past Surgical History Genitourinary Surgery: Yes (urinary tract dilation ) Other Surgery: Yes (HERNIS REPAIR - 1985) Social History Alcohol Use: Yes (ETOH tonight) Tobacco Use: No Substance Use: No (DENIES ANY USE) Allergies-Medications (Allergen,Severity, Reaction): Coded Allergies: No Known Allergies (Verified Allergy, Unknown, 06/12/17) No Known Drug Allergies (Verified Allergy, Unknown, 06/12/17) Reported Meds & Prescriptions Reported Meds & Active Scripts Active Ultram (Tramadol HCl) 50 Mg Tab 50 Mg PO Q6H PRN Coumadin (Warfarin) 5 Mg Tab 5 Mg PO DAILY Fluoxetine (Fluoxetine HCl) 40 Mg Cap 40 Cap PO DAILY Review of Systems ROS Limitations: Intoxication Except as stated in HPI: all other systems reviewed are Neg Physical Exam Exam Limitations: Intoxication Narrative GENERAL: Well-developed, overly nourished, in no acute distress, and non-ill appearing. Alcohol noted on breath. SKIN: Focused skin assessment warm and dry. HEAD: Atraumatic. Normocephalic. EYES: Pupils equal and round. EOMI. No scleral icterus. No injection or drainage. ENT: No nasal bleeding or discharge. Mucous membranes pink and moist. NECK: Trachea midline. Supple. No nuclear rigidity. CARDIOVASCULAR: Regular rate and rhythm. No murmur appreciated. RESPIRATORY: No accessory muscle use. No respiratory distress. Clear to auscultation. Breath sounds equal bilaterally. MUSCULOSKELETAL: No obvious deformities. No clubbing. No cyanosis. No edema. Full range of motion. NEUROLOGICAL: Awake and alert. No obvious cranial nerve deficits. Motor grossly within normal limits. Slurred speech. PSYCHIATRIC: Appropriate mood and affect; insight and judgment normal. Data Data Last Documented VS Vital Signs Date Time Temp Pulse Resp B/P (MAP) Pulse Ox O2 Delivery O2 Flow Rate FiO2 06/12/17 07:30 68 16 132/75 (94) 99 Room Air 06/12/17 01:15 98.2 Orders Orders Ed Discharge Order (06/12/17 08:28) MDM Medical Decision Making Medical Screen Exam Complete: Yes Emergency Medical Condition: No Differential Diagnosis Alcohol intoxication, alcohol abuse, malingering, other Narrative Course Patient was seen and examined. Patient will be monitored in the emergency department until clinically sober and able to ambulate on their own or until a sober responsible adult comes to pick them up. RN is aware of this. Diagnosis Primary Impression: Alcohol intoxication Qualified Codes: F10.920 - Alcohol use, unspecified with intoxication, uncomplicated Referrals: [facility] Patient Instructions: Alcohol Intoxication (ED), General Instructions Additional Instructions: Follow-up with your primary care physician and/or [facility] for detox. Return to the emergency department if symptoms get worse. Disposition: 01 DISCHARGE HOME Condition: Stable Cesar French Jun 12, 2017 01:27
[2017-06-12 07:30] VITALS: BP 132/75; PULSE 68; RESP 16; O2SAT 99
== END 2017-06-12 08:55 | disposition home or self-care (01) ==
LOC: NEPD 00:54
DX: F10.129 Alcohol abuse with intoxication, unspecified (principal); F31.9 Bipolar disorder, unspecified; E78.00 Pure hypercholesterolemia, unspecified; M17.9 Osteoarthritis of knee, unspecified; K21.9 Gastro-esophageal reflux disease without esophagitis; I10 Essential (primary) hypertension; F41.9 Anxiety disorder, unspecified; Z86.718 Personal history of other venous thrombosis and embolism; Z79.01 Long term (current) use of anticoagulants
CPT/HCPCS: 99283

== ENCOUNTER 2017-08-26 16:11 | Emergency (ER) | payer SELFPAY ==
[~2017-08-26] VITALS: Ht 172.7 cm; Wt 90.9 kg
[~2017-08-26 16:11] MED LIST changes: -IBUP1TAB5 PO; -OMEP40CA2 PO; -ROBA500T PO
[2017-08-26 16:16] VITALS: BP 125/81; PULSE 95; RESP 14; TEMP 99; O2SAT 98
--- NOTE | 2017-08-26 17:37 | PD ---
HPI Chief Complaint: Cold / Flu Symptoms Time Seen by Provider: 17:28 Travel History International Travel<30 days: No Contact w/Intl Traveler<30days: No Traveled to known affect area: No History of Present Illness HPI 57-year-old male with history of bipolar disorder here for evaluation of flulike symptoms for last 2 days. The patient reports fever, chills, cough productive of yellowish sputum, generalized malaise, body aches, sore throat. He has been taking Tylenol for his symptoms. No abdominal pain, nausea, vomiting, or diarrhea. No rash. His has some upper respiratory symptoms at home. He also states that while at work yesterday he had a "bipolar disorder attack" and because of this he lost his job. He denies feeling suicidal or homicidal. He states he feels better as far as this attack. He takes Prozac for bipolar disorder. PFSH Past Medical History Hx Anticoagulant Therapy: Yes (Coumadin) Arthritis: Yes (knees, joints) Bipolar Disorder: Yes Anxiety: Yes Depression: Yes Heart Rhythm Problems: No Cardiovascular Problems: Yes High Cholesterol: Yes Congestive Heart Failure: No Diabetes: No Diminished Hearing: No Deep Vein Thrombosis: Yes Endocrine: No Gastrointestinal Disorders: Yes GERD: Yes Genitourinary: No Headaches: Yes Hypertension: Yes (occ) Musculoskeletal: Yes Neurologic: Yes Psychiatric: Yes Respiratory: Yes Migraines: Yes Past Surgical History Genitourinary Surgery: Yes (urinary tract dilation ) Other Surgery: Yes (HERNIS REPAIR - 1985) Social History Alcohol Use: Yes (alot) Tobacco Use: No Substance Use: No (DENIES ANY USE) Allergies-Medications (Allergen,Severity, Reaction): Coded Allergies: No Known Allergies (Verified Allergy, Unknown, 06/12/17) No Known Drug Allergies (Verified Allergy, Unknown, 06/12/17) Reported Meds & Prescriptions Reported Meds & Active Scripts Active Ultram (Tramadol HCl) 50 Mg Tab 50 Mg PO Q6H PRN Coumadin (Warfarin) 5 Mg Tab 5 Mg PO DAILY Fluoxetine (Fluoxetine HCl) 40 Mg Cap 40 Cap PO DAILY Review of Systems Except as stated in HPI: all other systems reviewed are Neg Physical Exam Narrative GENERAL: Well-developed, well-nourished, comfortable, no apparent distress. SKIN: Focused skin assessment warm/dry. No rash. HEAD: Atraumatic. Normocephalic. EYES: Pupils equal and round. No scleral icterus. No injection or drainage. ENT: No nasal bleeding or discharge. Mucous membranes pink and moist. Normal pharynx. NECK: Trachea midline. No JVD. No nuchal rigidity. CARDIOVASCULAR: Regular rate and rhythm. RESPIRATORY: No accessory muscle use. Clear to auscultation. Breath sounds equal bilaterally. GASTROINTESTINAL: Abdomen soft, non-tender, nondistended. MUSCULOSKELETAL: No obvious deformities. No clubbing. No cyanosis. No edema. NEUROLOGICAL: Awake and alert. No obvious cranial nerve deficits. Motor grossly within normal limits. Normal speech. PSYCHIATRIC: Appropriate mood and affect; insight and judgment normal. Data Data Last Documented VS Vital Signs Date Time Temp Pulse Resp B/P (MAP) Pulse Ox O2 Delivery O2 Flow Rate FiO2 08/26/17 17:23 80 18 Room Air 08/26/17 16:16 99.0 125/81 (96) 98 Orders Orders Complete Blood Count With Diff (08/26/17 16:34) Comprehensive Metabolic Panel (08/26/17 16:34) Drug Screen, Random Urine (08/26/17 16:34) Alcohol (Ethanol) (08/26/17 16:34) Influenzae A/B Antigen (08/26/17 16:34) Chest, Single Ap (08/26/17 ) Ibuprofen (Motrin) (08/26/17 17:45) Oseltamivir (Tamiflu) (08/26/17 18:30) Labs Laboratory Tests Test 08/26/17 15:19 08/26/17 17:19 08/26/17 18:09 White Blood Count 6.0 TH/MM3 Red Blood Count 4.41 MIL/MM3 Hemoglobin 14.2 GM/DL Hematocrit 40.3 % Mean Corpuscular Volume 91.4 FL Mean Corpuscular Hemoglobin 32.3 PG Mean Corpuscular Hemoglobin Concent 35.3 % Red Cell Distribution Width 12.7 % Platelet Count 196 TH/MM3 Mean Platelet Volume 7.9 FL Neutrophils (%) (Auto) 77.6 % Lymphocytes (%) (Auto) 10.8 % Monocytes (%) (Auto) 10.6 % Eosinophils (%) (Auto) 0.4 % Basophils (%) (Auto) 0.6 % Neutrophils # (Auto) 4.6 TH/MM3 Lymphocytes # (Auto) 0.6 TH/MM3 Monocytes # (Auto) 0.6 TH/MM3 Eosinophils # (Auto) 0.0 TH/MM3 Basophils # (Auto) 0.0 TH/MM3 CBC Comment DIFF FINAL Differential Comment Blood Urea Nitrogen 8 MG/DL Creatinine 0.85 MG/DL Random Glucose 97 MG/DL Total Protein 7.8 GM/DL Albumin 4.1 GM/DL Calcium Level 8.6 MG/DL Alkaline Phosphatase 62 U/L Aspartate Amino Transf (AST/SGOT) 25 U/L Alanine Aminotransferase (ALT/SGPT) 21 U/L Total Bilirubin 0.4 MG/DL Sodium Level 136 MEQ/L Potassium Level 3.8 MEQ/L Chloride Level 101 MEQ/L Carbon Dioxide Level 29.6 MEQ/L Anion Gap 5 MEQ/L Estimat Glomerular Filtration Rate 93 ML/MIN Ethyl Alcohol Level LESS THAN 3 MG/DL Urine Opiates Screen NEG Urine Barbiturates Screen NEG Urine Amphetamines Screen NEG Urine Benzodiazepines Screen NEG Urine Cocaine Screen NEG Urine Cannabinoids Screen NEG MDM Medical Decision Making Medical Screen Exam Complete: Yes Emergency Medical Condition: Yes Medical Record Reviewed: Yes Differential Diagnosis Influenza, URI, viral illness, dehydration, pneumonia, bronchitis Narrative Course Vital signs reviewed and are within normal limits. CBC is unremarkable. CMP is unremarkable. CXR shows no acute disease. Influenza A Positive. Patient and the patient's significant other were made aware of all findings. He is resting comfortably and is in no respiratory distress. He'll be started on Tamiflu here in the emergency department and given a prescription for this medication. He was advised to stay hydrated with plenty of fluids and to keep fever under control by alternating between Tylenol and ibuprofen every 3-4 hours. PMD follow-up in the next 1-2 days. He was advised on when to return to the emergency department. He verbalizes understanding and agreement with plan. Diagnosis Primary Impression: Influenza A Referrals: Primary Care Physician 3 days Additional Instructions: Follow-up with your primary care physician in the next 1-2 days. Take Tamiflu as prescribed. Stay hydrated with plenty of fluids. Keep fever under control with Tylenol and ibuprofen, alternating every 3-4 hours. Return to the emergency department for worsening symptoms or any other concerns. Scripts Oseltamivir (Tamiflu) 75 Mg Cap 75 MG PO BID for Mgmt Viral Infection for 5 Days, #10 CAP 0 Refills Prov: Baljit Ortiz MD 08/26/17 Disposition: 01 DISCHARGE HOME Condition: Stable Baljit Ortiz MD Aug 26, 2017 17:37
[2017-08-26 17:39] LABS: AUTOMATED NEUTROPHIL # 4.6 TH/MM3 (1.8-7.7); BASOPHIL % 0.6 % (0.0-2.0); EOSINOPHIL % 0.4 % (0.0-4.0); HEMATOCRIT 40.3 % (39.0-51.0); HEMOGLOBIN 14.2 GM/DL (13.0-17.0); LYMPH % 10.8 % (9.0-44.0); LYMPHOCYTE # 0.6 TH/MM3 (1.0-4.8); MEAN CELL VOLUME 91.4 FL (80.0-100.0); MEAN CORPUSCULAR HEMOGLOBIN 32.3 PG (27.0-34.0); MEAN CORPUSCULAR HGB CONC 35.3 % (32.0-36.0); MEAN PLATELET VOLUME 7.9 FL (7.0-11.0); MONO % 10.6 % (0.0-8.0); MONOCYTE # 0.6 TH/MM3 (0-0.9); NEUT % 77.6 % (16.0-70.0); PLATELET COUNT 196 TH/MM3 (150-450); RED BLOOD COUNT 4.41 MIL/MM3 (4.50-5.90); RED CELL DISTRIBUTION WIDTH 12.7 % (11.6-17.2)
[2017-08-26] MEDS ORDERED: IBUPROFEN 600 MG TAB PO ONE (17:45)
[2017-08-26 17:59] LABS: ALBUMIN 4.1 GM/DL (3.4-5.0); ALT (GPT) 21 U/L (12-78); AST (GOT) 25 U/L (15-37); BICARBONATE 29.6 MEQ/L (21.0-32.0); BLOOD UREA NITROGEN 8 MG/DL (7-18); CALCIUM 8.6 MG/DL (8.5-10.1); CHLORIDE 101 MEQ/L (98-107); CREATININE 0.85 MG/DL (0.60-1.30); GLOMERULAR FILTRATION RATE 93 ML/MIN (>89); GLUCOSE,RANDOM 97 MG/DL (74-106); SODIUM (NA) 136 MEQ/L (136-145)
[2017-08-26 18:01] LABS: ALKALINE PHOSPHATASE 62 U/L (45-117); TOTAL BILIRUBIN ADULT 0.4 MG/DL (0.2-1.0); TOTAL PROTEIN 7.8 GM/DL (6.4-8.2)
--- NOTE | 2017-08-26 18:03 | RADRPT ---
EXAM DATE/TIME: 08/26/2017 17:43 [facility] COMPARISON: No previous studies available for comparison. INDICATIONS : Cough, flu symtoms. MEDICAL HISTORY : None. SURGICAL HISTORY : None. ENCOUNTER: Initial ACUITY: 1 day PAIN SCORE: 0/10 LOCATION: Bilateral chest FINDINGS: A single view of the chest demonstrates the lungs to be symmetrically aerated without evidence of mas s, infiltrate or effusion. The cardiomediastinal contours are unremarkable. Osseous structures are intact. CONCLUSION: No acute cardiopulmonary process. Ayaz Mishra MD on August 26, 2017 at 17:59 Board Certified Radiologist. This report was verified electronically.
[2017-08-26] MEDS ORDERED: OSELTAMIVIR PHOSPHATE 75 MG CAP PO ONE (18:30)
[2017-08-26] MEDS ORDERED: OSEL75 PO (18:44)
== END 2017-08-26 19:33 | disposition home or self-care (01) ==
LOC: NEPD 16:11
DX: J10.1 Influenza due to other identified influenza virus with other respiratory manifestations (principal); F31.9 Bipolar disorder, unspecified; F41.9 Anxiety disorder, unspecified; E78.00 Pure hypercholesterolemia, unspecified; I10 Essential (primary) hypertension; K21.9 Gastro-esophageal reflux disease without esophagitis; M17.0 Bilateral primary osteoarthritis of knee; Z86.718 Personal history of other venous thrombosis and embolism; Z79.01 Long term (current) use of anticoagulants
CPT/HCPCS: 71045; 80053; 80307; 85025; 87804; 99284

== ENCOUNTER 2018-01-04 03:40 | Emergency (ER) | payer OTHER ==
[~2018-01-04 03:40] MED LIST changes: +OSEL75 PO
[2018-01-04 03:58] VITALS: BP 114/62; PULSE 86; RESP 18; TEMP 97.9; O2SAT 96
--- NOTE | 2018-01-04 05:45 | PD ---
HPI Chief Complaint: Alcohol/Drug Intoxication Time Seen by Provider: 05:18 Travel History International Travel<30 days: No Contact w/Intl Traveler<30days: No Traveled to known affect area: No History of Present Illness HPI This is a 57-year-old male with history of bipolar disorder, alcohol abuse, GERD , who presents via police under a [employer] act after he was found intoxicated on the sidewalk outside of [facility] nightub. The patient admits to drinking a large amount of alcohol tonight. He denies any drugs of abuse. He denies any pain. PFSH Past Medical History Hx Anticoagulant Therapy: Yes (Coumadin) Arthritis: Yes (knees, joints) Bipolar Disorder: Yes Anxiety: Yes Depression: Yes Heart Rhythm Problems: No Cardiovascular Problems: Yes High Cholesterol: Yes Congestive Heart Failure: No Diabetes: No Diminished Hearing: No Deep Vein Thrombosis: Yes Endocrine: No Gastrointestinal Disorders: Yes GERD: Yes Genitourinary: No Headaches: Yes Hypertension: Yes (occ) Musculoskeletal: Yes Neurologic: Yes Psychiatric: Yes Respiratory: Yes Migraines: Yes Past Surgical History Genitourinary Surgery: Yes (urinary tract dilation ) Other Surgery: Yes (HERNIS REPAIR - 1985) Social History Alcohol Use: Yes ('ALOT' ) Tobacco Use: No Substance Use: No (DENIES ANY USE) Allergies-Medications (Allergen,Severity, Reaction): Coded Allergies: No Known Allergies (Verified Allergy, Unknown, 06/12/17) No Known Drug Allergies (Verified Allergy, Unknown, 06/12/17) Reported Meds & Prescriptions Reported Meds & Active Scripts Active Tamiflu (Oseltamivir Phosphate) 75 Mg Cap 75 Mg PO BID 5 Days Ultram (Tramadol HCl) 50 Mg Tab 50 Mg PO Q6H PRN Coumadin (Warfarin) 5 Mg Tab 5 Mg PO DAILY Fluoxetine (Fluoxetine HCl) 40 Mg Cap 40 Cap PO DAILY Review of Systems ROS Limitations: Intoxication Except as stated in HPI: all other systems reviewed are Neg Cardiovascular: No: Chest Pain or Discomfort, Palpitations Respiratory: No: Cough, Shortness of Breath Gastrointestinal: No: Nausea, Vomiting, Abdominal Pain Psychiatric: Positive: Other (History of bipolar), No: Depression, Suicidal Ideations Physical Exam Narrative GENERAL: Well-nourished, well-developed patient, in no acute respiratory distress. SKIN: Focused skin assessment warm/dry. HEAD: Normocephalic/atraumatic. EYES: No scleral icterus. No injection or drainage. NECK: Supple, trachea midline. CARDIOVASCULAR: Regular rate and rhythm without murmurs, gallops, or rubs. RESPIRATORY: Breath sounds equal bilaterally. No accessory muscle use. GASTROINTESTINAL: Abdomen soft, non-tender, nondistended. MUSCULOSKELETAL: No cyanosis, or edema. NEUROLOGICAL: Sleepy but arousable.. Cranial nerves II through XII intact. Motor and sensory grossly within normal limits. Five out of 5 muscle strength in all muscle groups. Slurred speech consistent with intoxication. Data Data Last Documented VS Vital Signs Date Time Temp Pulse Resp B/P (MAP) Pulse Ox O2 Delivery O2 Flow Rate FiO2 01/04/18 03:58 97.9 86 18 114/62 (79) 96 Orders Orders Alcohol (Ethanol) (01/04/18 05:07) Labs Laboratory Tests Test 01/04/18 03:27 Ethyl Alcohol Level 281 MG/DL MDM Medical Decision Making Medical Screen Exam Complete: Yes Emergency Medical Condition: Yes Differential Diagnosis Alcohol intoxication versus bipolar disorder versus polysubstance abuse Narrative Course 57-year-old male presents [employer] act after he was found sleeping on the sidewalk outside of a nightclub. Patient's alcohol level is 281. Patient is arousable and able to answer questions. He reports drinking a lot of alcohol last night. Patient also has a history of bipolar disorder. He will be observed until appropriately sober and then will be discharged home. Diagnosis Primary Impression: Alcohol intoxication Additional Impression: History of bipolar disorder Additional Instructions: Stop drinking alcohol Disposition: 01 DISCHARGE HOME Condition: Stable Efra Ryan MD Jan 04, 2018 05:45
[2018-01-04 08:28] VITALS: BP 125/64; PULSE 59; RESP 14; O2SAT 94
[2018-01-04 12:11] VITALS: BP 145/75
--- NOTE | 2018-01-04 12:13 | PD ---
Physical Exam Narrative Patient seen overnight by Dr. Ryan for alcohol intoxication. Data Data Last Documented VS Vital Signs Date Time Temp Pulse Resp B/P (MAP) Pulse Ox O2 Delivery O2 Flow Rate FiO2 01/04/18 12:11 80 14 145/75 (98) 95 01/04/18 08:28 Room Air 21 01/04/18 03:58 97.9 Orders Orders Alcohol (Ethanol) (01/04/18 05:07) Ed Discharge Order (01/04/18 12:13) Labs Laboratory Tests Test 01/04/18 03:27 Ethyl Alcohol Level 281 MG/DL [facility] Supervised Visit with [facility]: No Narrative Course Patient observed in the ED for several hours until clinically sober. He is awake and alert, has no medical complaints. He is advised to avoid alcohol use. Advised to seek help for detox. Diagnosis Primary Impression: Alcohol intoxication Qualified Codes: F10.920 - Alcohol use, unspecified with intoxication, uncomplicated Additional Impression: History of bipolar disorder Patient Instructions: General Instructions, Alcohol Use Disorder (ED) Departure Forms: Tests/Procedures Additional Instruction: Stop drinking alcohol Disposition: 01 DISCHARGE HOME Condition: Stable Odalys Robb MD Jan 04, 2018 12:13
== END 2018-01-04 12:18 | disposition home or self-care (01) ==
LOC: NEPE 03:40
DX: F10.129 Alcohol abuse with intoxication, unspecified (principal); F31.9 Bipolar disorder, unspecified; Y90.8 Blood alcohol level of 240 mg/100 ml or more; K21.9 Gastro-esophageal reflux disease without esophagitis; E78.00 Pure hypercholesterolemia, unspecified; Z86.718 Personal history of other venous thrombosis and embolism; I10 Essential (primary) hypertension; M17.9 Osteoarthritis of knee, unspecified; Z79.899 Other long term (current) drug therapy
CPT/HCPCS: 80307; 99283